=== PATIENT | female | born 1935 ===

== ENCOUNTER 2020-08-22 08:17 | Day surgery (SDC) | payer MEDICARE, OTHER ==
[~2020-08-22 08:17] MED LIST: Lactated Ringers 1,000 ML IV SCH; Midazolam 1 MG/ML 2 ML SDV ONE; Propofol 200 MG/20 ML SDV ONE; fentaNYL 100 MCG/2 ML SDV ONE
--- NOTE | 2020-08-22 08:51 | PCM.PREANE ---
Preanesthetic Assessment - Anesthesia/Transfusion/Family Hx Anesthesia History: Prior Anesthesia Without Reaction Family History of Anesthesia Reaction: No Transfusion History: No Prior Transfusion(s) Intubation History: Unknown - Review of Systems General: No Symptoms Pulmonary: No Symptoms Cardiovascular: No Symptoms Gastrointestinal: Hematochezia Neurological: No Symptoms Other: Reports: None - Physical Assessment Vital Signs: Last Vital Signs Temp 36.2 C 08/22/20 08:30 Pulse 80 08/22/20 08:30 Resp 16 08/22/20 08:30 BP 132/72 08/22/20 08:30 Pulse Ox 93 L 08/22/20 08:30 Height: 5 ft 5 in Weight: 76.204 kg ASA Class: 2 Mental Status: Alert & Oriented x3 Airway Class: Mallampati = 2 Dentition: Reports: Dentures (upper) Thyro-Mental Finger Breadths: 3 Mouth Opening Finger Breadths: 3 ROM/Head Extension: Limited/Partial Lungs: Clear to Auscultation, Normal Respiratory Effort Cardiovascular: Regular Rate, Regular Rhythm - Allergies Allergies/Adverse Reactions: Allergies Allergy/AdvReac Type Severity Reaction Status Date / Time No Known Allergies Allergy Verified 08/19/20 08:50 - Blood Blood Available: No - Anesthesia Plan Pre-Op Medication Ordered: None - Acknowledgements Anesthesia Type Planned: MAC Pt an Appropriate Candidate for the Planned Anesthesia: Yes Alternatives and Risks of Anesthesia Discussed w Pt/Guardian: Yes Pt/Guardian Understands and Agrees with Anesthesia Plan: Yes PreAnesthesia Questionnaire HEENT History: Reports: Other (See Below) Other HEENT History: wears glasses, has top denture Cardiovascular History: Reports: Hypertension Respiratory History: Reports: None Gastrointestinal History: Reports: None Genitourinary History: Reports: None 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 bx. and radiation) Dermatologic History: Reports: None - Past Surgical History Head Surgeries/Procedures: Reports: None HEENT Surgical History: Reports: Cataract Surgery Cardiovascular Surgical History: Reports: None Respiratory Surgical History: Reports: None GI Surgical History: Reports: Appendectomy Female Surgical History: Reports: Breast Biopsy Endocrine Surgical History: Reports: None Neurological Surgical History: Reports: None Musculoskeletal Surgical History: Reports: Other (See Below) Other Musculoskeletal Surgeries/Procedures:: sx for fx little finger-left hand (states has plastic knuckle) Oncologic Surgical History: Reports: Biopsy of Breast Dermatological Surgical History: Reports: None - SUBSTANCE USE Tobacco Use Status *Q: Former Tobacco User Tobacco Use Within Last Twelve Months: No - HOME MEDS Home Medications: Home Meds Aspirin [Kourtney Chewable] 81 mg PO DAILY 10/08/14 [History] allopurinoL [Allopurinol] 100 mg PO DAILY 10/08/14 [History] atenoloL [Tenormin] 25 mg PO DAILY 10/08/14 [History] Olmesartan/Hydrochlorothiazide [Benicar HCT 40-25 MG] 1 tab PO DAILY 08/19/20 [History] - CURRENT (IN HOUSE) MEDS Current Meds: Current Medications Lactated Ringer's (Ringers, Lactated) 1,000 mls @ 125 mls/hr IV ASDIRECTED [facility] Last Admin: 08/22/20 08:36 Dose: 125 mls/hr Documented by: Discontinued Medications Fentanyl (Sublimaze) Confirm Administered Dose 100 mcg .ROUTE .STK-MED ONE Stop: 08/22/20 07:06 Midazolam HCl (Versed 1 Mg/Ml) Confirm Administered Dose 2 mg .ROUTE .STK-MED ONE Stop: 08/22/20 07:06 Propofol (Diprivan 20 Ml) Confirm Administered Dose 200 mg .ROUTE .STK-MED ONE Stop: 08/22/20 07:05
[2020-08-22] MEDS ORDERED: Glycopyrrolate 0.2 MG/ML SDV ONE (09:51)
--- NOTE | 2020-08-22 10:26 | PCM.OPNOTE ---
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 Sigmoid diverticulosis. Anesthesia Technique: MAC (ASA II) Primary Surgeon: Mahin Menchaca Condition: Good Free Text/Narrative:: DICTATION [id number] CPT CODE 58143
[2020-08-22] MEDS ORDERED: Lactated Ringers 1,000 ML IV SCH (10:30)
[2020-08-22 10:32] VITALS: PULSE 67
--- NOTE | 2020-08-22 10:40 | PCM.POSTAN ---
POST ANESTHESIA ASSESSMENT - MENTAL STATUS Mental Status: Alert, Oriented - VITAL SIGNS Vital Signs: Last Vital Signs Temp 36.2 C 08/22/20 08:30 Pulse 67 08/22/20 10:30 Resp 18 08/22/20 10:30 BP 103/62 08/22/20 10:30 Pulse Ox 93 L 08/22/20 10:30 - RESPIRATORY Respiratory Status: Respiratory Rate WNL, Airway Patent, O2 Saturation Stable - CARDIOVASCULAR CV Status: Pulse Rate WNL, Blood Pressure Stable - GASTROINTESTINAL GI Status: No Symptoms - PAIN Pain Score: 0 - POST OP HYDRATION Hydration Status: Adequate & Stable - OBSERVATIONS Free Text/Narrative:: No anesthesia problems
--- NOTE | 2020-08-22 10:55 | PCM48HPAN ---
Post Anesthesia Note - EVALUATION WITHIN 48HRS OF ANESTHETIC Vital Signs in Normal Range: Yes Patient Participated in Evaluation: Yes Respiratory Function Stable: Yes Airway Patent: Yes Cardiovascular Function Stable: Yes Hydration Status Stable: Yes Pain Control Satisfactory: Yes Nausea and Vomiting Control Satisfactory: Yes Mental Status Recovered: Yes Vital Signs: Last Vital Signs Temp 36.2 C 08/22/20 08:30 Pulse 67 08/22/20 10:30 Resp 18 08/22/20 10:30 BP 103/62 08/22/20 10:30 Pulse Ox 93 L 08/22/20 10:30 - COMMENTS/OBSERVATIONS Free Text/Narrative:: No anesthesia problems
[2020-08-22 11:28] VITALS: BP 112/66
--- NOTE | 2020-08-22 12:24 | OR ---
SURGEON: Mahin Menchaca M.D. DATE OF PROCEDURE: 08/22/2020 OPERATION PERFORMED: Colonoscopy with biopsy of rectosigmoid tumor. PRIMARY SURGEON: Mahin Menchaca MD. ANESTHESIA: MAC. ASA CLASSIFICATION: II. PREOPERATIVE DIAGNOSIS: Six month history of rectal bleeding. POSTOPERATIVE DIAGNOSIS: Rectosigmoid tumor. DESCRIPTION OF PROCEDURE: The patient was taken to the endoscopy room and positioned on the endoscopy table in the left lateral decubitus position. Time-out was called for appropriate identification of the patient and procedure. Monitored anesthesia care was provided. The colonoscope was inserted into the rectum and advanced to the rectosigmoid junction where a tumor was identified that appeared to encompass between 50% to 60% of the lumen. I was able to maneuver the colonoscope above this and complete the examination all the way to the cecum. The colonoscope was not able to be retroflexed in the cecum, but the cecum was identified by internal landmarks and external pressure. The cecum, ascending colon, hepatic flexure, transverse colon, splenic flexure, and descending colon showed no tumors, polyps, diverticula, or angiodysplastic changes. The sigmoid colon itself demonstrated numerous wide-mouthed diverticula with no stricture, spasm, or bleeding. The colonoscope was then withdrawn to the rectosigmoid junction. At approximately 16 cm from the anal orifice, the tumor masses were identified. Multiple biopsies of this area were obtained. The tumor did appear to be least 4 cm in length. Multiple biopsies again were obtained. The colonoscope was then withdrawn into the rectum and retroflexed to visualize the anal orifice from above. No acute hemorrhoidal changes were noted. The colonoscope was then straightened and withdrawn. At that point, digital rectal examination was carried out and with significant pressure on the perineum, I am able to feel just the distal tumor itself. It was at least 12 cm from the anal verge or anal orifice. The colonoscope having been withdrawn, rectal exam completed. The patient was allowed to emerge from anesthesia and taken to recovery room in stable condition. LARA / ANGELICA /[id number]
== END 2020-08-22 11:26 | disposition home or self-care (01) ==
LOC: MW.SDS 08:17
PROVIDERS: ATTEND Surgery
DX: C19 Malignant neoplasm of rectosigmoid junction (principal); K62.5 Hemorrhage of anus and rectum; K57.30 Diverticulosis of large intestine without perforation or abscess without bleeding; I10 Essential (primary) hypertension; F17.210 Nicotine dependence, cigarettes, uncomplicated; Z79.899 Other long term (current) drug therapy; Z79.82 Long term (current) use of aspirin; Z90.49 Acquired absence of other specified parts of digestive tract
CPT/HCPCS: 36415; 45380; 82378; 88302; J2250; J2704; J3010; J3490; J7120; 00811